=== PATIENT | female | born 1990 | race Caucasian/White ===

== ENCOUNTER 2018-02-22 15:34 | Outpatient (CLI) | payer OTHER ==
--- NOTE | 2018-02-22 18:59 | ULT ---
OB ULTRASOUND: Comparison: None. History: female. Evaluate size, dates, and anatomy. Technique: Multiplanar grayscale and color doppler images were obtained in a transabdominal ult rasound. FINDINGS: There is a single live intrauterine with heart rate of 155 beats/minute. A survey was performed which is unremarkable. The head, intracranial structures, heart, stomach, kidneys, umbilic al cord, umbilical cord insertion, bladder, spine, face and extremities were normal. Estimated weight is 390 grams. Average age of the fetus based off today's examination is 21 weeks 1 day. The fo llowing measurements were taken: BPD 5.09 cm 21 weeks 3 days HC 82.27 cm 20 weeks 5 days AC 15.83 cm 21 weeks 0 days FL 3.49 cm 21 weeks 1 day The placenta is anterior in location without focal abnormalities. ARTEMIO is 15.91 cm, which is normal. T here is no evidence of placenta previa. IMPRESSION: Single live intrauterine with estimated age of 21 weeks 1 day. POS: JOANNA
== END 2018-02-22 15:35 | disposition home or self-care (01) ==
LOC: BICULT 15:34
PROVIDERS: ATTEND Family Medicine
DX: Z34.82 Encounter for supervision of other normal pregnancy, second trimester (principal); Z3A.21 21 weeks gestation of pregnancy
CPT/HCPCS: 76805

== ENCOUNTER 2018-06-26 09:30 | Inpatient (IN) | payer OTHER ==
[2018-06-26 10:01] VITALS: BMI 25.0
[2018-06-26] MEDS ORDERED: Butorphanol Tartrate 1 MG/ML VIAL SLOW IVP PRN (10:17)
[2018-06-26] MEDS ORDERED: HYDROcodone/Acetaminophen 5/325 mg Tablet PO PRN ×3 (10:17→15:30)
[2018-06-26] MEDS ORDERED: NS / Oxytocin 40 units/1000ml 1,000 ML IV PRN (10:17)
[2018-06-26] MEDS ORDERED: Lidocaine 1% (PF) 30 ML VIAL SC PRN (10:17)
[2018-06-26] MEDS ORDERED: Ibuprofen 800 MG TAB PO PRN (10:17)
[2018-06-26] MEDS ORDERED: Promethazine HCl 25 MG/ML VIAL IM PRN ×2 (10:17→12:15)
--- NOTE | 2018-06-26 10:21 | PDOC.LDHP ---
Labor and Delivery H&P HPI: Patient of Dr Head Tiem: [id number] Location: Triage CC: CTX since 0700 HPI: 28 yo at 38 weeks 6 days, GBS negative, here for CTX. Hx "fast labors ". No LOF, no VB, no HARDY, no visual changes, nor RUQ pain. Good FM. No stated issues. Review of Systems: complete ROS completed and as per HPI Current gestational age (weeks): 38 (6 days) Dating criteria: last menstrual period Grav: 2 Para: 1 OB History Details: Current complications: none Abnormal US findings: No Current medications: pre- vitamins Previous surgical history: other (wisdom teeth) Allergies/Adverse Reactions: Allergies Allergy/AdvReac Type Severity Reaction Status Date / Time hydrocodone AdvReac Nausea Verified 06/26/18 10:01 - Physical Exam Vital signs reviewed and normal: yes (104/65 99.1 80 18) General: NAD Heart: RRR Lungs: CTAB Abdomen: gravid Extremeties: no edema FHT: category 1 [place] contractions every: every 3-5 minutes - Vaginal Exam cm dilated: 4 Effacement: 50% Station: -1 - Assessment L&D Assessment: term patient in labor Early term (full term tomorrow), GBS negative with latent labor phase but regular CTX and HX rapid labor. We will admit due to CTX frequenct. - Plan Plan: admit to L&D, labor augmentation if indicated, informed consent obtained, anesthesia consult for pain management, other (I have sent a message to Dr Head (without PHI) to inform her of her patient's arrival and admission)
[2018-06-26] MEDS: Lactated Ringer's 1,000 ML IV SCH ×2 (10:40→12:25)
[2018-06-26 10:56] LABS: Mean Corpuscular HGB CONC 33.6 g/dL (32.0-36.0); Mean Corpuscular Hemoglobin 31.6 pg (27.0-31.0); Platelet Count 179 thou/uL (130-400); RBC Distribution Width 13.1 % (11.5-14.5); White Blood Cell (WBC) Count 10.3 thou/uL (4.8-10.8)
[2018-06-26] MEDS ORDERED: Bupivacaine/Epinephrine 0.25% 30 ML VIAL ONE (11:11)
[2018-06-26] MEDS ORDERED: Fentanyl 4 mcg/Bup 0.1% Cadd 100 ML ONE (11:14)
[2018-06-26 11:38] LABS: HBSAg Index 0.21 S/CO (0-0.99); HIV (1/2) Antibody/Antigen Non-Reactive (NonReactive); HIV 1/2 INDEX 0.17 S/CO (<1.00); Hep B Surf Ag Non-Reactive S/CO (NonReactive); Syphilis Antibody Nonreactive (Nonreactive); Syphilis Antibody Index 0.03 S/CO (<1.00 Non-Reactive)
[2018-06-26] MEDS ORDERED: Naloxone HCl 0.4 mg/ml Vial IVP PRN ×2 (12:15)
[2018-06-26] MEDS ORDERED: Acetaminophen 325 MG TAB PO PRN (12:15)
[2018-06-26] MEDS ORDERED: ePHEDrine/0.9% NaCl/PF SYRINGE 50 mg/10 ml SLOW IVP PRN (12:15)
[2018-06-26] MEDS ORDERED: diphenhydrAMINE 50 MG/ML VIAL IVP PRN (12:15)
[2018-06-26] MEDS ORDERED: Lactated Ringer's 500 ML IV PRN (12:15)
[2018-06-26] MEDS ORDERED: Ondansetron PF 4 MG/2 ML Vial IVP PRN (12:15)
[2018-06-26] MEDS ORDERED: Eucerin (Mineral Oil/Petrolatum,White) 30 gm Jar TOP PRN (12:15)
[2018-06-26] MEDS ORDERED: Communication Order-Pharmacy FS SCH (12:15)
[2018-06-26] MEDS ORDERED: Fentanyl 4 mcg/Bupivacaine 0.1% Cassette 100 ML EPIDURAL SCH (12:15)
[2018-06-26] MEDS ORDERED: Fentanyl 100 MCG/2 ML VIAL ONE (13:38)
[2018-06-26] MEDS ORDERED: Fentanyl 100 MCG/2 ML VIAL EPIDURAL SCH (13:40)
[2018-06-26] MEDS ORDERED: NS / Oxytocin 40 units/1000ml 1,000 ML IV SCH (15:30)
[2018-06-26] MEDS ORDERED: Milk Of Magnesia 30 ML UDCUP PO PRN (15:30)
[2018-06-26] MEDS ORDERED: Benzocaine/Menthol 20-0.5% 60 ML CAN TOP PRN (15:30)
[2018-06-26] MEDS ORDERED: Bisacodyl 10 MG SUPP PR PRN (15:30)
[2018-06-26] MEDS: Docusate Calcium (SURFAK) 240 MG CAP PO SCH (23:01)
[2018-06-26] MEDS: Ibuprofen 800 MG TAB PO SCH (23:01)
[2018-06-27] MEDS: Ferrous Sulfate 325 MG TAB PO SCH ×3 (01:19→09:39)
[2018-06-27] MEDS: Ibuprofen 800 MG TAB PO SCH ×2 (04:59→14:26)
[2018-06-27 08:12] VITALS: BP 102/58; TEMP 98
[2018-06-27] MEDS ORDERED: Adacel (T-DAP) 0.5 ML SYRINGE IM ONE (09:00)
[2018-06-27] MEDS: Docusate Calcium (SURFAK) 240 MG CAP PO SCH (09:39)
--- NOTE | 2018-06-27 09:42 | PDOC.PP ---
Post Progress Note Post Day #: 1 Subjective: DOing well. going well. Lochia normal. PO intake tolerated: yes Flatus: yes Ambulation: yes Vital Signs (12 hours) Temp Pulse Resp BP BP Pulse Ox 06/27/18 08:12 98.0 F 73 20 102/58 L 98 06/27/18 04:55 98.2 F 85 18 106/53 L 06/26/18 23:45 98.4 F 79 18 107/60 06/26/18 22:35 98.2 F 92 18 111/57 L Weight Weight 155 lb - Physical Examination General: NAD Cardiovascular: no m/r/g, RRR Respiratory: clear to auscultation bilaterally, non-labored breathing Abdominal: + bowel sounds, lochia, no distention, appropriately TTP Result Diagrams: 06/26/18 10:40 Additional Labs: Post Labs Blood Type AB POSITIVE 06/26/18 10:40 Hep Bs Antigen Non-Reactive S/CO (NonReactive) 06/26/18 10:40 (1) Vaginal delivery Code(s): O80 - ENCOUNTER FOR FULL-TERM UNCOMPLICATED DELIVERY Status: Acute - Assessment/Plan Routine care D/C home this PM F/U in 6 weeks
== END 2018-06-27 18:37 | disposition home or self-care (01) | DRG 807 ==
LOC: L&D/OP 09:30 → L&D 10:33 → 3SW 22:21
PROVIDERS: ADMIT Family Medicine; ATTEND Family Medicine
PROC: 10E0XZZ Delivery of Products of Conception, External Approach (ICD-10-PCS; principal; 2018-06-26)
PROC: 10907ZC Drainage of Amniotic Fluid, Therapeutic from Products of Conception, Via Natural or Artificial Opening (ICD-10-PCS; 2018-06-26)
PROC: 0HQ9XZZ Repair Perineum Skin, External Approach (ICD-10-PCS; 2018-06-26)
DX: O76 Abnormality in fetal heart rate and rhythm complicating labor and delivery (principal); O70.0 First degree perineal laceration during delivery; Z37.0 Single live birth; Z3A.38 38 weeks gestation of pregnancy; Z88.5 Allergy status to narcotic agent
CPT/HCPCS: 51702; 85027; 86780; 86850; 86900; 86901; 87340; 87389; 99285; J3010

== ENCOUNTER 2020-04-08 01:04 | Day surgery (SDC) | payer OTHER ==
[2020-04-08 01:36] VITALS: BP 112/79; TEMP 99; BMI 24.0
[2020-04-08 02:05] LABS: Amnisure Internal Control QC ACCEPTABLE (ACCEPTABLE)
[2020-04-08 02:17] LABS: Amnisure Test No Membranes Rupture (No Rupture)
[2020-04-08] MEDS ORDERED: hydrALAZINE 20 MG/ML VIAL SLOW IVP PRN (03:10)
--- NOTE | 2020-04-08 04:04 | PRG ---
DATE OF SERVICE: 04/08/2020 PRIMARY OB: Kyle Head MD CHIEF COMPLAINT: Abdominal pains. HISTORY OF PRESENT ILLNESS: The patient is a 29-year-old G3, P2 female with an intrauterine at 37 weeks and 2 days who presented to Labor and Delivery with uterine contractions that began about 7 to 9 o'clock last night. The patient reports that they became more severe as the progressed and has come for evaluation. The patient reports she has been having some wetness requiring her to change her underwear and some mucousy discharge. She denies vaginal bleeding. The patient denies fever, headache, chest pain, shortness of breath, nausea, vomiting, diarrhea, constipation, any new rashes. She reports hip problems with this . Denies vaginal bleeding, urinary urgency, or frequency. PAST MEDICAL HISTORY: Negative. PAST SURGICAL HISTORY: Negative or noncontributory. ALLERGIES: HYDROCODONE. SOCIAL HISTORY: Denies drug, alcohol, or tobacco use. OB LABS: Unavailable at time of dictation. REVIEW OF SYSTEMS: Per HPI. PHYSICAL EXAMINATION: VITAL SIGNS: Blood pressure 112/79, heart rate of 82, respiratory rate of 20, temperature 99.0. GENERAL: She appears to be in no acute distress. She is alert and oriented, cooperative, and pleasant to interact with. HEAD: Normocephalic, atraumatic. LUNGS: Clear to auscultation bilaterally. HEART: Has a regular rate and rhythm. ABDOMEN: Gravid, soft, nontender. EXTREMITIES: Nontender, nonedematous. : Vulva is without masses, lesions, or erythema. Vagina is moist. She does have a lot of mucousy discharge at the level of the cervix. No pulling on Valsalva or cough. Cervical exam per nursing staff is 250 and -2 station. DIAGNOSTIC DATA: heart tracing shows the fetus with the baseline in the 130s with moderate long-term variability, positive 15 x 15 accelerations, no decelerations. Tocometer showing irregular contractions anywhere from 2 to 10 minutes apart. AmniSure is negative. ASSESSMENT AND PLAN: The patient is a 29-year-old multiparous female with an intrauterine at 37 weeks and 2 days, presenting for evaluation of labor. The patient has no evidence at this time of active labor. She is comfortable in the room. Fetus has a category 1 tracing and reactive NST. Plan at this time is to recheck in a couple of hours to see if she is having any cervical change at which time she will be discharged home or be admitted for labor and Dr. Head will be notified. pt discharged home Job ID: [id number] MTDD
== END 2020-04-08 04:58 | disposition home or self-care (01) ==
LOC: L&D/OP 01:04
DX: O47.1 False labor at or after 37 completed weeks of gestation (principal); O99.891 Other specified diseases and conditions complicating pregnancy; N89.8 Other specified noninflammatory disorders of vagina; Z3A.37 37 weeks gestation of pregnancy; Z88.5 Allergy status to narcotic agent
CPT/HCPCS: 84112; 99283

== ENCOUNTER 2020-04-17 01:49 | Day surgery (SDC) | payer OTHER ==
[2020-04-17 02:14] VITALS: BP 119/66; TEMP 98.6; BMI 22.7
[2020-04-17] MEDS ORDERED: hydrALAZINE 20 MG/ML VIAL SLOW IVP PRN (03:01)
--- NOTE | 2020-04-17 03:04 | PDOC.LDHP ---
Labor and Delivery H&P Chief complaint: contractions HPI: 29yo at 38.4wks presents to L&D with complaint of contractions. Pt stated that they started 2 hours ago and woke her up from sleep due to the pain. States they are occurring every 2 minutes but are only painful about every 10 minutes. Denies any loss of fluid, vaginal discharge, urinary or bowel changes or recent illness. Pt did have some mild vaginal bleeding earlier this week that occurred after a cervical exam and stripping of membranes in her OB's office. She was dilated to a 4 at that time. Current gestational age (weeks): 38 (.4) Due date: 04/27/20 Dating criteria: last menstrual period Grav: 3 Para: 2 OB History Details: 2 previous - states her labors were rapid, approx 4 hours Current complications: none Past Medical History: migraines, exercise induced asthma Current medications: pre-[place] vitamins Previous surgical history: other (wisdom teeth) Allergies/Adverse Reactions: Allergies Allergy/AdvReac Type Severity Reaction Status Date / Time hydrocodone AdvReac Nausea Verified 04/17/20 02:09 Social history: none - Physical Exam Vital signs reviewed and normal: yes General: NAD Heart: RRR Lungs: nonlabored breathing Abdomen: NTTP Extremeties: no edema FHT: category 1, variability present - Vaginal Exam cm dilated: 4 Effacement: 25% Station: -1 - OB Labs Blood type: unknown RH: unknown Antibody Screen: unknown HIV: unknown RPR: unknown HEPSAg: unknown 1 hour GCT: unknown GBS: unknown - Plan -: Term - R/o Labor - Inconsistent contraction pattern - SVE unchanged from earlier this week on report - No signs of SROM - No indicates for early eIOL Plan: Will monitor the patient for a few hours and watch what her contraction pattern does. Will recheck her cervix then and assess for cervical change indicating labor. Patient and eager to have child today but there is no indication for induction at this time. Have not set an induction date yet with primary OB. Addendum - Attending - Attending Attestation Date/Time: 04/17/20 0610 I personally evaluated the patient and discussed the management with Dr. Whitman. I agree with the History, Examination, Assessment and Plan documented above.
--- NOTE | 2020-04-17 05:48 | PDOC.LDPN ---
Labor & Delivery Progress Note - Subjective Subjective: comfortable - Objective Vital signs reviewed and normal: yes General: NAD, resting Dilation: 4 Effacement: 25% Station: -2 FHT: category 1, variability present [place] contractions every: >10 min -: Term - R/O Labor - Contractions have spaced out significantly, no obvious contraction within last 20 minutes - SVE unchanged - FHT remains reassuring, Cat 1, reactive Plan: DC home. Discussed return precautions. Has appointment with OB in 2 days. Recommended they discuss induction at that visit if they are interested. Addendum - Attending - Attending Attestation Date/Time: 04/17/20 0609 I personally evaluated the patient and discussed the management with Dr. Whitman. I agree with the History, Examination, Assessment and Plan documented above.
== END 2020-04-17 05:50 | disposition home or self-care (01) ==
LOC: L&D/OP 01:49
PROVIDERS: ATTEND Family Medicine
DX: O47.1 False labor at or after 37 completed weeks of gestation (principal); Z3A.38 38 weeks gestation of pregnancy; Z88.5 Allergy status to narcotic agent
CPT/HCPCS: 99283

== ENCOUNTER 2020-05-02 05:44 | Inpatient (IN) | payer OTHER ==
[2020-05-02] MEDS ORDERED: Acetaminophen 500 MG TAB PO PRN (06:00)
[2020-05-02] MEDS ORDERED: Butorphanol Tartrate 1 MG/ML VIAL SLOW IVP PRN (06:00)
[2020-05-02] MEDS ORDERED: hydrALAZINE 20 MG/ML VIAL SLOW IVP PRN ×2 (06:00→15:18)
[2020-05-02] MEDS ORDERED: Dextrose 5%-Lactated Ringers 1,000 ML IV SCH (06:00)
[2020-05-02] MEDS ORDERED: NS w/ Oxytocin 30 units 500 ML IV SCH ×3 (06:00→06:15)
[2020-05-02] MEDS ORDERED: Promethazine HCl 25 MG/ML VIAL IM PRN ×2 (06:00→13:24)
[2020-05-02] MEDS ORDERED: Ondansetron PF 4 MG/2 ML Vial IVP PRN ×2 (06:00→13:24)
[2020-05-02] MEDS ORDERED: Ibuprofen 800 MG TAB PO PRN (06:15)
[2020-05-02] MEDS ORDERED: Carboprost 250 MCG/ML AMP IM PRN (06:15)
[2020-05-02] MEDS ORDERED: Lidocaine 1% (PF) 30 ML VIAL SC PRN (06:15)
[2020-05-02] MEDS ORDERED: Misoprostol 200 MCG TAB RC PRN (06:15)
[2020-05-02] MEDS ORDERED: Methylergonovine 0.2 MG/ML VIAL IM PRN (06:15)
[2020-05-02 06:17] VITALS: BMI 25.0
[2020-05-02 06:44] LABS: Hemoglobin 11.8 g/dL (12.0-16.0); Mean Corpuscular HGB CONC 32.4 g/dL (32.0-36.0); Mean Corpuscular Hemoglobin 30.2 pg (27.0-31.0); Mean Corpuscular Volume 93.1 fL (78.0-98.0); Mean Platelet Volume 9.3 fL (7.4-10.4); Platelet Count 177 thou/uL (130-400); RBC Distribution Width 12.1 % (11.5-14.5); Red Blood Cell (RBC) Count 3.93 mill/uL (4.20-5.40); White Blood Cell (WBC) Count 10.4 thou/uL (4.8-10.8)
[2020-05-02 07:14] LABS: HBSAg Index 0.19 S/CO (0-0.99); Hep B Surf Ag Non-Reactive S/CO (NonReactive); Syphilis Antibody Nonreactive (Nonreactive); Syphilis Antibody Index 0.03 S/CO (<1.00 Non-Reactive)
--- NOTE | 2020-05-02 08:30 | PDOC.LDHP ---
Labor and Delivery H&P Chief complaint: scheduled induction HPI: 29 year old at 39+ weeks requesting induction of labor. Her cervix was favorable at 4/70/-2. Initially we planned just to AROM and let her labor but the baby is not well engaged at this time so we will start with pitocin and consider AROM later today. Current gestational age (weeks): 39 Due date: 05/04/20 Dating criteria: last menstrual period, first trimester ultrasound Grav: 3 Para: 2 Current complications: none Abnormal US findings: No Current medications: pre- vitamins Previous surgical history: none Allergies/Adverse Reactions: Allergies Allergy/AdvReac Type Severity Reaction Status Date / Time hydrocodone AdvReac Nausea Verified 05/02/20 06:03 Social history: none - Physical Exam Vital signs reviewed and normal: yes General: NAD, resting Heart: RRR Lungs: CTAB Abdomen: gravid Extremeties: no edema FHT: category 1, variability present [place] contractions every: irregular - Vaginal Exam cm dilated: 4 Effacement: 75% Station: -2 - OB Labs Blood type: AB RH: positive Antibody Screen: negative HIV: negative RPR: negative HEPSAg: negative 1 hour GCT: negative GBS: negative Urine drug screen: not done Rubella: immune - Assessment L&D Assessment: elective induction at term - Plan Plan: admit to L&D, labor augmentation if indicated, informed consent obtained, anesthesia consult for pain management, other (Will start with pitocin for induction. Cervix is favorable. Discussed risks and alternatives with the patient and her . Will consider AROM when baby lower in the pelvis.)
[2020-05-02] MEDS ORDERED: Fentanyl 4 mcg/Bup 0.1% Cadd 100 ML ONE (12:19)
[2020-05-02] MEDS ORDERED: diphenhydrAMINE 50 MG/ML VIAL IVP PRN (13:24)
[2020-05-02] MEDS ORDERED: Naloxone HCl 0.4 mg/ml Vial IVP PRN ×2 (13:24)
[2020-05-02] MEDS ORDERED: Acetaminophen 325 MG TAB PO PRN (13:24)
[2020-05-02] MEDS ORDERED: Lactated Ringer's 500 ML IV PRN (13:24)
[2020-05-02] MEDS ORDERED: ePHEDrine 50 MG/ML VIAL SLOW IVP PRN (13:24)
[2020-05-02] MEDS ORDERED: Fentanyl 4 mcg/Bupivacaine 0.1% Cassette 100 ML EPIDURAL SCH (13:30)
[2020-05-02] MEDS ORDERED: Communication Order-Pharmacy FS SCH (13:30)
--- NOTE | 2020-05-02 13:38 | PDOC.OPDEL ---
OB Operative/Delivery Note Delivery Dr/Surgeon: Sonido Pre-Delivery Diagnosis: elective induction Procedure/Post Delivery Dx: spontaneous vaginal delivery (Head OA, loose nuchal cord x1, reduced, shoulders and body easily followed, inflant placed on mother's abdomen. After some delay, the cord was doubly clamped and cut.) Weeks gestation: 39 Anesthesia: epidural - Findings A Sex: female - 1 min: 8 - 5 min: 9 - Additional Findings/Plan Placenta delivered: spontaneous (Intact, 3 vessel cord) Repaired Obstetrical Laceration: 1st degree (Repaired in standard running fashion with 2.0 vicryl.) Estimated blood loss: QBL 60ml Post delivery plan: routine recovery
[2020-05-02] MEDS ORDERED: Bupivacaine HCl 0.25%/Epi 0.0005/PF 10 ML VIAL FS ONE (14:00)
[2020-05-02] MEDS ORDERED: Preparation H Ointment 28 GM TUBE PR PRN (15:18)
[2020-05-02] MEDS ORDERED: Bisacodyl 10 MG SUPP PR PRN (15:18)
[2020-05-02] MEDS ORDERED: Milk Of Magnesia 30 ML UDCUP PO PRN (15:18)
[2020-05-02] MEDS ORDERED: NS / Oxytocin 40 units/1000ml 1,000 ML IV SCH (15:18)
[2020-05-02] MEDS ORDERED: diphenhydrAMINE 25 MG CAP PO PRN (15:18)
[2020-05-02] MEDS ORDERED: Adacel (T-DAP) 0.5 ML SYRINGE IM ONE (15:18)
[2020-05-02] MEDS ORDERED: HYDROcodone/Acetaminophen 5/325 mg Tablet PO PRN (15:18)
[2020-05-02] MEDS ORDERED: Ibuprofen 800 MG TAB PO SCH (15:45)
[2020-05-02] MEDS: Ferrous Sulfate 325 MG TAB PO SCH (16:07)
[2020-05-02] MEDS: Ibuprofen 800 MG TAB PO SCH (20:21)
[2020-05-02] MEDS: Docusate Calcium (SURFAK) 240 MG CAP PO SCH (20:22)
[2020-05-03] MEDS: Ibuprofen 800 MG TAB PO SCH ×2 (06:12→14:07)
[2020-05-03] MEDS: Ferrous Sulfate 325 MG TAB PO SCH ×2 (08:20→17:46)
--- NOTE | 2020-05-03 08:28 | PDOC.PP ---
Post Progress Note Post Day #: 1 Subjective: No complaints. well. Wants to go home today. PO intake tolerated: yes Flatus: yes Ambulation: yes Vital Signs (12 hours) Temp Pulse Resp BP Pulse Ox 05/03/20 08:13 98.8 F 84 20 98/54 L 98 Weight Weight 155 lb - Physical Examination General: NAD Cardiovascular: no m/r/g, RRR Respiratory: clear to auscultation bilaterally, non-labored breathing Abdominal: + bowel sounds, lochia, no distention, appropriately TTP Extremities: negative homans (B) Result Diagrams: 05/02/20 06:20 Additional Labs: Post Labs Hep Bs Antigen Non-Reactive S/CO (NonReactive) 05/02/20 06:20 Blood Type AB POSITIVE 05/02/20 06:20 (1) Vaginal delivery Code(s): O80 - ENCOUNTER FOR FULL-TERM UNCOMPLICATED DELIVERY Status: Acute - Assessment/Plan Routine PP care Continue to work on D/C home F/U in 6 weeks
[2020-05-03] MEDS: Docusate Calcium (SURFAK) 240 MG CAP PO SCH (09:23)
[2020-05-03 11:49] VITALS: BP 93/50; TEMP 98.3
== END 2020-05-03 18:10 | disposition home or self-care (01) | DRG 807 ==
LOC: L&D 05:44 → 3SW 15:48
PROVIDERS: ADMIT Family Medicine; ATTEND Family Medicine
PROC: 10E0XZZ Delivery of Products of Conception, External Approach (ICD-10-PCS; principal; 2020-05-02)
PROC: 0HQ9XZZ Repair Perineum Skin, External Approach (ICD-10-PCS; 2020-05-02)
DX: O69.81X0 Labor and delivery complicated by cord around neck, without compression, not applicable or unspecified (principal); Z37.0 Single live birth; Z3A.39 39 weeks gestation of pregnancy; Z88.5 Allergy status to narcotic agent; O70.0 First degree perineal laceration during delivery
CPT/HCPCS: 36415; 85027; 86780; 86850; 86900; 86901; 87340; J2590